=== PATIENT | male | born 1985 | race African-American/Black ===

== ENCOUNTER 2018-12-12 20:07 | Emergency (ER) | payer OTHER ==
[~2018-12-12] VITALS: Ht 190.5 cm; Wt 86.2 kg
[2018-12-12 20:07] VITALS: BP_SYST 118
[2018-12-12] MEDS ORDERED: NACL 0.9% 1,000 ML IV ONE (20:32)
[2018-12-12] MEDS ORDERED: PANTOPRAZOLE SODIUM 40 MG/VIAL (PROTONIX) IVP ONE (20:45)
[2018-12-12] MEDS ORDERED: ONDANSETRON HCL 4 MG/2 ML VIAL IVP ONE (20:45)
[2018-12-12] MEDS ORDERED: DIPHENHYDRAMINE INJ 50 MG/ML VIAL IVP ONE ×2 (20:45→21:45)
[2018-12-12] MEDS ORDERED: FAMOTIDINE PF 20 MG/2 ML VIAL IVP ONE (20:45)
[2018-12-12] MEDS ORDERED: methylPREDNISolone SOD SUCC/PF 62.5 MG/ML VIAL IVP ONE (20:45)
[2018-12-12 21:08] LABS: BASOPHILS % (AUTO) 0.5 % (0.0-2.0); EOSINOPHILS % (AUTO) 0.8 % (0.0-4.0); HEMATOCRIT 33.6 % (36-54); LYMPHOCYTES # (AUTO) 1.2 K/uL (1.0-5.5); LYMPHOCYTES % (AUTO) 21.6 % (20.5-51.5); MEAN CORPUSCULAR HEMOGLOBIN 28 pg (27-31); MEAN CORPUSCULAR HGB CONC 33 % (32-36); MEAN CORPUSCULAR VOLUME 84 fL (79.0-98.0); MONOCYTES # (AUTO) 0.6 K/uL (0.0-1.0); MONOCYTES % (AUTO) 10.2 % (1.7-9.3); NEUTROPHILS # (AUTO) 3.8 K/uL (1.8-7.7); NEUTROPHILS % (AUTO) 66.9 % (40.0-70.0); PLATELET COUNT (AUTO) 201 K/uL (130-430); RED CELL DISTRIBUTION WIDTH 18.2 % (9.0-15.0); WHITE BLOOD COUNT (AUTO) 5.7 K/uL (4.8-10.8)
[2018-12-12 21:27] LABS: ALBUMIN 3.7 g/dL (3.4-4.8); CALCIUM 9.3 mg/dL (8.4-11.0); POTASSIUM 3.6 mmol/L (3.5-5.1); TOTAL BILIRUBIN 0.4 mg/dL (0.0-1.0)
[2018-12-12 21:30] LABS: CREATININE 0.48 mg/dL (0.55-1.30); INR 1.1 (0.80-1.20); PROTHROMBIN TIME 10.6 SECS (9.5-12.5)
[2018-12-12] MEDS ORDERED: fentaNYL CITRATE/PF 100 MCG/2 ML AMP IVP ONE (21:30)
[2018-12-12] MEDS ORDERED: MORPHINE 4 MG/ML INJ. SYRINGE IVP ONE (22:00)
[2018-12-12] MEDS ORDERED: IOHEXOL 350 mgI/mL, 150 ML INFUS..BTL IV ONE (22:23)
[2018-12-13] MEDS ORDERED: DIPHENHYDRAMINE INJ 50 MG/ML VIAL IVP ONE (01:00)
[2018-12-13] MEDS ORDERED: MORPHINE 4 MG/ML INJ. SYRINGE IVP ONE (01:00)
[2018-12-13 03:30] VITALS: BP_SYST 126
== END 2018-12-13 03:30 | disposition home or self-care (01) ==
LOC: SED 20:07
DX: R07.89 Other chest pain (principal); Z86.79 Personal history of other diseases of the circulatory system; Z91.041 Radiographic dye allergy status; Z91.040 Latex allergy status; Z91.018 Allergy to other foods; Z88.8 Allergy status to other drugs, medicaments and biological substances
CPT/HCPCS: 36415; 71045; 71275; 80053; 83880; 84484; 85025; 85379; 85610; 85730; 96361 ×2; 96374; 96375; 96376 ×2; 99284; C9113; J1200 ×2; J2270 ×2; J2405; J2930; J3010; J3490; J7030; Q9967; 99283

== ENCOUNTER 2018-12-26 13:06 | Emergency (ER) | payer OTHER ==
[~2018-12-26] VITALS: Ht 190.5 cm; Wt 90.7 kg
[2018-12-26 13:10] VITALS: BP_SYST 112
[2018-12-26 13:48] LABS: BASOPHILS % (AUTO) 0.5 % (0.0-2.0); EOSINOPHILS # (AUTO) 0.1 K/uL (0.0-0.4); EOSINOPHILS % (AUTO) 0.9 % (0.0-4.0); HEMATOCRIT 35.1 % (36-54); HEMOGLOBIN 11.5 g/dL (14.0-18.0); LYMPHOCYTES # (AUTO) 1.1 K/uL (1.0-5.5); MEAN CORPUSCULAR HEMOGLOBIN 28 pg (27-31); MEAN CORPUSCULAR HGB CONC 33 % (32-36); MEAN CORPUSCULAR VOLUME 84 fL (79.0-98.0); MONOCYTES # (AUTO) 0.4 K/uL (0.0-1.0); MONOCYTES % (AUTO) 5.8 % (1.7-9.3); NEUTROPHILS # (AUTO) 5.4 K/uL (1.8-7.7); NEUTROPHILS % (AUTO) 76.8 % (40.0-70.0); PLATELET COUNT (AUTO) 182 K/uL (130-430); RED BLOOD CELL COUNT(AUTO) 4.17 MIL/uL (4.2-6.2); RED CELL DISTRIBUTION WIDTH 18.4 % (9.0-15.0)
[2018-12-26 14:00] LABS: PROTHROMBIN TIME 10.4 SECS (9.5-12.5)
[2018-12-26 14:08] LABS: ANION GAP 5 (5-15); CALCIUM 8.4 mg/dL (8.4-11.0); CHLORIDE 105 mmol/L (98-107); CREATININE 0.59 mg/dL (0.55-1.30); GLUCOSE 90 mg/dL (70-99); POTASSIUM 3.7 mmol/L (3.5-5.1); SODIUM SERUM 140 mmol/L (136-145); UREA NITROGEN, BLOOD 11 mg/dL (8-21)
[2018-12-26 14:09] LABS: GFR AFRICAN AMERICAN 203 mL/min (>90)
[2018-12-26] MEDS ORDERED: fentaNYL CITRATE/PF 100 MCG/2 ML AMP IM ONE (14:15)
[2018-12-26] MEDS ORDERED: ONDANSETRON 4 MG ODT TAB PO ONE (14:15)
[2018-12-26 14:17] LABS: ALANINE AMINOTRANSFERASE 19 U/L (12-78); ALBUMIN 3.3 g/dL (3.4-4.8); ASPARTATE AMINOTRANSFERASE 9 U/L (10-37); TOTAL BILIRUBIN 0.4 mg/dL (0.0-1.0)
[2018-12-26 15:45] VITALS: BP_SYST 118
== END 2018-12-26 15:45 | disposition home or self-care (01) ==
LOC: SED 13:06
DX: R07.89 Other chest pain (principal); I25.2 Old myocardial infarction; Z86.79 Personal history of other diseases of the circulatory system; Z91.041 Radiographic dye allergy status; Z91.040 Latex allergy status; Z91.018 Allergy to other foods; Z88.8 Allergy status to other drugs, medicaments and biological substances
CPT/HCPCS: 36415; 71045; 80053; 84484; 85025; 85379; 85610; 85730; 93005; 96372; 99284; J3010; Q0162

== ENCOUNTER 2019-01-31 00:42 | Emergency (ER) | payer OTHER ==
[~2019-01-31] VITALS: Ht 190.5 cm; Wt 90.7 kg
[2019-01-31 00:42] VITALS: BP_SYST 149
--- NOTE | 2019-01-31 00:42 | NUR ---
Pt placed to ER bed 07, to gown, to vehicle monitor technician. Pt c/o vomiting x 3 with "7 tablespoons bright red blood" since 2299 and "sharp and tearing" midsternal C/P that radiates to center of back since 29. Pt also c/o numbness to Left arm and Left leg since 2299.
--- NOTE | 2019-01-31 00:47 | NUR ---
EKG done at bedside and given to Dr. Morel to interpret. Pt tolerated well.
--- NOTE | 2019-01-31 01:15 | NUR ---
Dr. Morel at bedside to assess pt.
--- NOTE | 2019-01-31 01:30 | NUR ---
Upon discussing the need for IV access, pt states "I don't want us to fiddle around trying to put an IV in my arms. They always place an EJ IV and pull the blood from there." Dr. Morel made aware.
--- NOTE | 2019-01-31 01:45 | NUR ---
Pt to CT via stretcher in stable condition.
--- NOTE | 2019-01-31 01:59 | NUR ---
Pt returns from CT in stable condition, reconnected to monitor tech. Dr. Morel at bedside to discuss options for IV access.
[2019-01-31 02:27] LABS: BASOPHILS % (AUTO) 0.2 % (0.0-2.0); HEMATOCRIT 34.7 % (36-54); HEMOGLOBIN 11.5 g/dL (14.0-18.0); LYMPHOCYTES # (AUTO) 0.2 K/uL (1.0-5.5); LYMPHOCYTES % (AUTO) 5.1 % (20.5-51.5); MEAN CORPUSCULAR HEMOGLOBIN 29 pg (27-31); MEAN CORPUSCULAR HGB CONC 33 % (32-36); MEAN CORPUSCULAR VOLUME 86 fL (79.0-98.0); MONOCYTES % (AUTO) 0.9 % (1.7-9.3); NEUTROPHILS % (AUTO) 93.8 % (40.0-70.0); PLATELET COUNT (AUTO) 192 K/uL (130-430); RED BLOOD CELL COUNT(AUTO) 4.04 MIL/uL (4.2-6.2); RED CELL DISTRIBUTION WIDTH 19.8 % (9.0-15.0); WHITE BLOOD COUNT (AUTO) 4.3 K/uL (4.8-10.8)
--- NOTE | 2019-01-31 02:30 | NUR ---
Unsuccessful attempt to place 18 GA IV using U/S. Dr. Morel made aware.
[2019-01-31 02:42] LABS: INR 1.2 (0.80-1.20); PROTHROMBIN TIME 11.7 SECS (9.5-12.5)
--- NOTE | 2019-01-31 02:45 | NUR ---
Dr. Morel at bedside with successful placement of EJ IV, great blood return, easy NS flush. Secured with tegaderm and tape. Pt tolerated well. Addendum: 01/31/19 at 0355 by [email or web address] 18 GA angiocath to Left EJ.
[2019-01-31 02:52] LABS: ALANINE AMINOTRANSFERASE 22 U/L (12-78); ALBUMIN 3.7 g/dL (3.4-4.8); ANION GAP 9 (5-15); ASPARTATE AMINOTRANSFERASE 14 U/L (10-37); CALCIUM 8.8 mg/dL (8.4-11.0); CHLORIDE 105 mmol/L (98-107); CREATININE 0.62 mg/dL (0.55-1.30); GLUCOSE 142 mg/dL (70-99); POTASSIUM 4.1 mmol/L (3.5-5.1); SODIUM SERUM 140 mmol/L (136-145); TOTAL BILIRUBIN 0.6 mg/dL (0.0-1.0); UREA NITROGEN, BLOOD 8 mg/dL (8-21)
[2019-01-31 02:55] LABS: GFR AFRICAN AMERICAN 192 mL/min (>90)
[2019-01-31] MEDS ORDERED: DIPHENHYDRAMINE INJ 50 MG/ML VIAL IVP ONE ×4 (03:30→08:30)
[2019-01-31] MEDS ORDERED: MORPHINE 4 MG/ML INJ. SYRINGE IVP ONE (03:30)
[2019-01-31] MEDS ORDERED: ONDANSETRON HCL 4 MG/2 ML VIAL IVP ONE (03:30)
[2019-01-31] MEDS ORDERED: NACL 0.9% 1,000 ML IV ONE (03:45)
--- NOTE | 2019-01-31 03:45 | NUR ---
[employer] arrives to take pt for CT with contrast. Informed radiology director that pt has a Left EJ. She states that she doesn't feel comfortable pushing the contrast through an EJ and that the radiologist stated that the Radiology Technicians are not to do so. Dr. Morel made aware.
--- NOTE | 2019-01-31 03:48 | NUR ---
Spoke with pt regarding CT with contrast. He stated that he has had the procedure, but must be premedicated with SoluMedrol 125 mg IV along with Benadryl 50 mg IV and wait [address] with contrast. Pt also states that upon return from CT, he must then receive another dose of Benadryl [address] Morel made aware.
--- NOTE | 2019-01-31 04:06 | NUR ---
Dr. Morel on phone with radiologist regarding CT with contrast.
--- NOTE | 2019-01-31 04:10 | NUR ---
Dr. Morel receives approval from Dr. Noel ([facility]) to perform CT with contrast. CT consent signed by patient and placed to his chart.
[2019-01-31 04:30] LABS: BILIRUBIN,URINE NEGATIVE (NEGATIVE); BLOOD, URINE 2+ (NEGATIVE); CLARITY/URINE CLEAR (CLEAR); COLOR,URINE YELLOW (YELLOW); GLUCOSE,URINE NEGATIVE (NEGATIVE); KETONES,URINE 1+ (NEGATIVE); LEUKOCYTE ESTERASE ,URINE NEGATIVE (NEGATIVE); NITRITE, URINE NEGATIVE (NEGATIVE); PROTEIN URINE NEGATIVE (NEGATIVE)
--- NOTE | 2019-01-31 04:30 | NUR ---
Pt AAOx3, even and non-labored respirations, VSS. Pt looking at iPad.
[2019-01-31 04:49] LABS: BACTERIA,URINE FEW /HPF (None Seen); WBC,URINE 0-3 /HPF (0-3)
[2019-01-31] MEDS ORDERED: methylPREDNISolone SOD SUCC/PF 62.5 MG/ML VIAL IVP ONE (05:00)
[2019-01-31] MEDS ORDERED: MORPHINE 2 MG/ML INJ. SYRINGE IVP ONE (05:00)
--- NOTE | 2019-01-31 05:05 | NUR ---
Pt AAOx3, even and non-labored respirations, VSS. Pt looking at iPad. Pt c/o 08/29 pain to abdomen and chest. Dr. Morel notified.
--- NOTE | 2019-01-31 05:10 | NUR ---
Pt pre-medicated with SoluMedrol 125mg and Benadryl 50mg. Pt also medicated with Morphine for 6/10 pain to chest and abdomen.
[2019-01-31] MEDS ORDERED: DIPHENHYDRAMINE INJ 50 MG/ML VIAL ONE (05:14)
[2019-01-31] MEDS ORDERED: methylPREDNISolone SOD SUCC/PF 62.5 MG/ML VIAL ONE (05:15)
[2019-01-31] MEDS ORDERED: IOHEXOL 100 ML IV ONE (05:44)
--- NOTE | 2019-01-31 05:45 | NUR ---
Pt AAOx3, even and non-labored respirations, verbalizes improvement in pain. VSS, NAD. Pt to CT via stretcher in stable condition. Accomanied by Aramis Rao and myself with portable front desk monitor.
--- NOTE | 2019-01-31 05:56 | NUR ---
Pt returns from CT in stable condition. Tolerated IV contrast without s/s allergic reaction. AAOx3, airway patent, respirations even and non-labored, BBS clear. Pt reconnected to bedside media monitor and VSS. No needs verbalized at this time. Pt resumes watching videos on his iPad.
--- NOTE | 2019-01-31 06:00 | NUR ---
Pt watching videos on his iPad. No s/s allergic react s/p CT contrast. Airway patent, respirations even and non-labored. VSS. No needs verbalized at this time. Left EJ remains secure and patent.
--- NOTE | 2019-01-31 07:00 | NUR ---
AAOX3, respirations even and non-labored, VSS, NAD. No needs verbalized at this time.
--- NOTE | 2019-01-31 07:25 | NUR ---
Pt report given to JEN Yoder.
--- NOTE | 2019-01-31 07:48 | NUR ---
PT SITTING UP IN BED, IN NAD. PLAYING WITH LAPTOP. DENIES ANY PAIN AT THIS TIME, SR ON MONITOR. VSS. CALL LIGHT WITHIN REACH.
[2019-01-31] MEDS ORDERED: fentaNYL CITRATE/PF 100 MCG/2 ML AMP IVP ONE (08:30)
--- NOTE | 2019-01-31 10:18 | NUR ---
NO ACUTE CHANGES IN CONDITION, PT IN NAD. VSS.
[2019-01-31 11:30] VITALS: BP_SYST 131
== END 2019-01-31 11:30 | disposition home or self-care (01) ==
LOC: SED 00:42
DX: R07.89 Other chest pain (principal); K92.0 Hematemesis; R04.2 Hemoptysis; Z91.040 Latex allergy status; Z91.018 Allergy to other foods; Z88.8 Allergy status to other drugs, medicaments and biological substances; Z90.49 Acquired absence of other specified parts of digestive tract
CPT/HCPCS: 36415; 70450; 71045; 71250; 71275; 76770; 80053; 81000; 82550; 83880; 84484; 85025; 85379; 85610; 93005; 96374; 96375; 96376; 99284; J1200; J2270 ×2; J2405; J2930; J3010; J7030; Q9967